=== PATIENT | female | born 1950 | race Caucasian/White ===

== ENCOUNTER 2017-11-01 22:17 | Observation (INO) ==
--- NOTE | 2017-11-01 23:16 | XR ---
EXAM DATE: 11/01/2017 11:06 PM EDT AGE/SEX: 67 years / Female INDICATIONS: Evaluate lung status. Patient fell today. CLINICAL DATA: This is the patient's initial encounter. Patient reports that signs and symptoms have been present for 1 day and indicates a pain score of 0/10. MEDICAL/SURGICAL HISTORY: . Unobtainable. . Unobtainable. COMPARISON: No prior exams available for comparison. FINDINGS: A single AP view of the chest demonstrates the lungs to be symmetrically aerated without evidence of mass, infiltrate or effusion. The cardiomediastinal contours are unremarkable. Osseous structures a re intact. CONCLUSION: No acute cardiopulmonary process Electronically signed by: Krzysztof Oro MD 11/01/2017 11:15 PM EDT
--- NOTE | 2017-11-01 23:48 | ED ---
HPI General Chief complaint: Fall Stated complaint: fall/evac Time Seen by Provider: 11/01/17 22:26 Source: patient and EMS Mode of arrival: EMS Limitations: no limitations History of Present Illness HPI narrative: The patient is a 67 year old female who presents to the [facility] emergency department with a history of reportedly falling, hitting her head prior to arrival. The patient reportedly has a laceration to the head. Patient had a pressure bandage applied prior to arrival by ambulance services. The patient reports having chronic problems with her balance and frequent falls. She reports that she usually falls once a day. She denies having any loss of consciousness with this fall. She denies having any neck pain, new numbness or tingling to her arms or legs, or new weakness of her arms or legs. On review of systems otherwise, the patient denies having any known recent fevers, cough or congestion, chest pain, shortness of breath, abdominal pain, vomiting, diarrhea, urinary symptoms, or neurologic symptoms. The patient reports that she is unsure when her tetanus was last updated, however she has a history of multiple allergies and prefers that it not be administered today. Related Data Home Medications Medication Instructions Recorded Confirmed acetaminophen [Tylenol Extra 500 mg PO Q6H PRN 11/02/17 11/02/17 Strength] clonazepam [Klonopin] 2 mg PO QID 11/02/17 11/02/17 Allergies Allergy/AdvReac Type Severity Reaction Status Date / Time amoxicillin Allergy Swelling Verified 11/02/17 01:05 of Lip/Tongue/Throat aspirin Allergy Shortness Verified 11/02/17 01:05 of Breath bee pollen Allergy Rash Verified 11/02/17 01:05 calcium Allergy Shortness Verified 11/02/17 01:05 of Breath cheese Allergy Itching Verified 11/02/17 01:05 clonidine Allergy Chest Pain Verified 11/02/17 01:05 codeine Allergy Swelling Verified 11/02/17 01:05 of Lip/Tongue/Throat divalproex sodium Allergy Seizures Verified 11/02/17 01:05 [From Depakote] doxycycline Allergy Rash Verified 11/02/17 01:05 egg Allergy Hives Verified 11/02/17 01:05 Fish Containing Products Allergy Hives Verified 11/02/17 01:05 ibuprofen Allergy Swelling Verified 11/02/17 01:05 of Lip/Tongue/Throat Iodinated Contrast- Oral and Allergy Hives Verified 11/02/17 01:05 IV Dye latex Allergy Blister Verified 11/02/17 01:05 levalbuterol [From Xopenex] Allergy Anxiety Verified 11/02/17 01:05 morphine Allergy Shortness Verified 11/02/17 01:05 of Breath peanut Allergy Shortness Verified 11/02/17 01:05 of Breath Penicillins Allergy Swelling Verified 11/02/17 01:05 of Lip/Tongue/Throat propofol Allergy Hives Verified 11/02/17 01:05 propranolol Allergy Shortness Verified 11/02/17 01:05 of Breath soy Allergy Shortness Verified 11/02/17 01:05 of Breath tree nut Allergy Shortness Verified 11/02/17 01:05 of Breath triamcinolone [From Azmacort] Allergy Shortness Verified 11/02/17 01:05 of Breath zinc Allergy Itching Verified 11/02/17 01:05 diphenhydramine AdvReac Anxiety Verified 11/02/17 01:05 [From Benadryl] escitalopram [From Lexapro] AdvReac Irritabilit Verified 11/02/17 01:05 y/Anxiety hydroxyzine [From Vistaril] AdvReac Irritabilit Verified 11/02/17 01:05 y/Anxiety paroxetine [From Paxil] AdvReac Irritabilit Verified 11/02/17 01:05 y/Anxiety prednisone AdvReac Anxiety Verified 11/02/17 01:05 quetiapine [From Seroquel] AdvReac Anxiety Verified 11/02/17 01:05 zolpidem [From Ambien] AdvReac Restlessnes Verified 11/02/17 01:05 s Review of Systems ROS Unobtainable All other systems reviewed negative except as stated in HPI [facility] Medical History Medical History Anxiety (Acute) Diabetes (Acute) Migraine (Acute) Peptic ulcer disease (Acute) Surgical History Surgical History History of thyroid surgery (Acute) Hx of tonsillectomy (Acute) Social History Social History Substance History: No History of Abuse Second Hand Smoke Exposure: No Smoking Status: Never smoker How Often Do You Have a Drink Containing Alcohol: Never Recent Travel in [facility] within the Last 8 Weeks: No Recent Out of Country Travel within the Last 8 Weeks: No Immunization History Tetanus Immunization: Unsure Hx Influenza Vaccine This Season: No Exam [facility] Head: normocephalic and atraumatic (Patient had evidence of trauma with a pressure bandage in place. After the patient came back from CT the patient's bandage was removed and the patient was noted along the occiput, near the base of the skull to have an approximately 4 cm laceration with bleeding control.) Nose: no nasal discharge and no epistaxis Mouth: moist mucous membranes Throat: posterior oropharynx normal Eyes Sclera: normal sclerae Pupils: PERRL Neck Neck: no meningeal signs (No spinous process tenderness to palpation. No step- off or crepitus. No erythema or ecchymosis. No pain with active range of motion of her neck.), trachea midline and no JVD Chest Chest: normal inspection of the chest Resp Effort & Inspection: no use of accessory muscles Auscultation: clear to auscultation bilaterally Cardio Rate: regular rate Rhythm: regular rhythm Heart Sounds: no murmurs GI Inspection: non-distended Palpation: soft, no hepatosplenomegaly and nontender Back/Spine/Pelvis Back: no CVA tenderness Thoracic/Lumbar Spine: No thoracic spinal tenderness and No lumbar spinal tenderness Skin General: dry skin (warm) Trauma: abrasion (The patient is noted to have superficial laceration to the anterior [place] on the left, abrasion to bilateral knees, abrasion to the right posterior elbow.) Neuro General: alert, awake and oriented x3 Cranial Nerves: CN's II-XI intact bilaterally Speech: speech normal Motor: strength 5/5 throughout and no movement abnormalities noted Sensory Exam: no sensory deficits noted Extrem General: normal to inspection, no clubbing, no cyanosis and no edema Psych Mood: congruent mood Affect: normal affect Judgment: judgment good Course Reevaluation(s) Reevaluation #1: The patient was reevaluated and her pressure bandage was removed. The patient was noted to have a scalp laceration on the occipital scalp. The physician review assistant was consulted for wound cleansing and repair. Reevaluation #2: The patient was instructed regarding her laboratory results including the hypokalemia. The patient will be admitted to the hospital for supplementation of her potassium. Consultations Consultation #1: The patient's case including history, pertinent physical examination findings, and laboratory studies were discussed with Dr. Snyder. It was agreed that the patient would be admitted to the hospitalist service. Initial Documented Vital Signs Pulse Rate 87 11/01/17 22:22 Respiratory Rate 20 11/01/17 22:22 Blood Pressure 165/72 H 11/01/17 22:22 Pulse Oximetry 100 11/01/17 22:22 Last Documented Vital Signs Pulse Rate 77 11/02/17 06:48 Respiratory Rate 16 11/02/17 06:47 Blood Pressure 163/74 H 11/02/17 06:47 Pulse Oximetry 100 11/02/17 06:47 Medical Decision Making MDM Narrative Medical decision making narrative: During the course of the patient's emergency department visit, the patient's history, examination, and differential diagnosis were reviewed with the patient. The patient was placed on a pvc monitor with oximetry and frequent blood pressure monitoring. The patient had IV access obtained and blood work sent for analysis. CT scan of the head and neck has been ordered, chest x-ray has been ordered. The patient was initially provided normal saline IV fluids The patient's laboratory studies were remarkable for a white count of 11.7, hemoglobin 11.2, platelets 352 with 84.5 neutrophils PT PTT unremarkable, chemistry is remarkable for a troponin I of less than 0.02, CPK 428, TSH elevated at 4.86, glucose 117, potassium 2.8, GFR is 48, creatinine 1.13, MB percent 1.0, ammonia level is less than 10, urine drug screen is positive for benzodiazepines. Chest x-ray showed no acute abnormality. CT scan of the head and neck showed no acute abnormality. Regarding the patient's laceration, Gelacio, the physician review assistant was consulted regarding wound cleansing and repair. The patient will be admitted to the hospital for generalized weakness, hypokalemia, head injury. The patient's results were discussed with the patient, including the plan of care. I explained that further testing and/ or monitoring is indicated based on the patient's history, examination, and/ or laboratory findings. Therefore, I recommended admission for additional evaluation. The patient expressed understanding and was agreeable with this plan. The patient was admitted to the hospital in stable condition and sent to a bed under the care of the [facility] service. Differential Diagnosis Differential Diagnosis: Intracranial trauma, versus cervical spine trauma, versus encephalopathy, versus electrolyte derangements, versus dehydration Medical Records Medical records reviewed: Yes I reviewed the patient's medical records. Lab Data Lab results reviewed: Yes I reviewed the patient's lab results. Result diagrams: 11/01/17 23:40 11/01/17 23:40 Lab Results 11/01/17 11/01/17 11/01/17 Range/Units 23:40 23:40 23:40 WBC 11.7 H (4.0-11.0) th/mm3 RBC 3.91 L (4.00-5.30) mil/mm3 Hgb 11.2 L (11.6-15.3) gm/dL Hct 34.4 L (35.0-46.0) % MCV 88.1 (80.0-100.0) fL MCH 28.7 (27.0-34.0) pg MCHC 32.6 (32.0-36.0) % RDW 17.2 (11.6-17.2) % Plt Count 352 (150-450) th/mm3 MPV 7.3 (7.0-11.0) fL Neut % (Auto) 84.5 H (16.0-70.0) % Lymph % (Auto) 10.8 (9.0-44.0) % [place] % (Auto) 3.9 (0.0-8.0) % Eos % (Auto) 0.2 (0.0-4.0) % Baso % (Auto) 0.6 (0.0-2.0) % Neut # (Auto) 9.9 H (1.8-7.7) th/mm3 Lymph # (Auto) 1.3 (1.0-4.8) th/mm3 [place] # (Auto) 0.5 (0.0-0.9) th/mm3 Eos # (Auto) 0.0 (0.0-0.4) th/mm3 Baso # (Auto) 0.1 (0.0-0.2) th/mm3 WBC Differential . Differential Comment Auto diff final PT 10.4 (9.8-11.6) sec INR 1.0 Ratio APTT 21.9 L (24.3-30.1) sec Sodium 141 (136-145) meq/L Potassium 2.8 L* (3.5-5.1) meq/L Chloride 107 (98-107) meq/L Carbon Dioxide 22.9 (21.0-32.0) meq/L Anion Gap 11 (5-15) meq/L BUN 17 (7-18) mg/dL Creatinine 1.13 H (0.50-1.00) mg/dL Estimated GFR 48 L (>89) mL/min Random Glucose 117 H (74-106) mg/dL Calcium 8.7 (8.5-10.1) mg/dL Magnesium (1.5-2.5) mg/dL Total Bilirubin 0.4 (0.2-1.0) mg/dL AST 22 (15-37) U/L ALT 21 (10-53) U/L Alkaline Phosphatase 85 (45-117) U/L Ammonia (11-32) mcmol/L Total Creatine Kinase 428 H (26-192) U/L CK-MB (CK-2) 4.3 H (0.5-3.6) ng/mL CK-MB (CK-2) % 1.0 (0.0-4.0) % Troponin I Less than 0.02 L (0.02-0.05) ng/mL Total Protein 8.2 (6.4-8.2) g/dL Albumin 4.0 (3.4-5.0) g/dL Lipase 115 (73-393) U/L TSH 4.860 H (0.358-3.740) uIU/mL Urine Color (Yellw/Straw) Urine Clarity (Clear) Urine pH (5.0-8.5) Ur Specific Pinch (1.002-1.035) Urine Protein (Neg-Trace) mg/dL Urine Glucose (UA) (Negative) mg/dL Urine Ketones (Negative) mg/dL Urine Occult Blood (Negative) Urine Nitrate (Negative) Urine Bilirubin (Negative) Urine Urobilinogen (Less than 2) mg/dL Ur Leukocyte Esterase (Negative) Urine RBC (0-3) /hpf Urine WBC (0-5) /hpf Urine Bacteria (None) /hpf Granular Casts (None) /lpf Urine Mucus (Occasional) /lpf Micro UA Comment Urine Culture Comments Urine Opiates Screen (Neg) Ur Barbiturates Screen (Neg) Ur Amphetamines Screen (Neg) U Benzodiazepines Scrn (Neg) Urine Cocaine Screen (Neg) U Cannabinoids Screen (Neg) Serum Alcohol Less than 3 (0-5) mg/dL 11/01/17 11/01/17 11/02/17 Range/Units 23:40 23:40 00:00 WBC (4.0-11.0) th/mm3 RBC (4.00-5.30) mil/mm3 Hgb (11.6-15.3) gm/dL Hct (35.0-46.0) % MCV (80.0-100.0) fL MCH (27.0-34.0) pg MCHC (32.0-36.0) % RDW (11.6-17.2) % Plt Count (150-450) th/mm3 MPV (7.0-11.0) fL Neut % (Auto) (16.0-70.0) % Lymph % (Auto) (9.0-44.0) % [place] % (Auto) (0.0-8.0) % Eos % (Auto) (0.0-4.0) % Baso % (Auto) (0.0-2.0) % Neut # (Auto) (1.8-7.7) th/mm3 Lymph # (Auto) (1.0-4.8) th/mm3 [place] # (Auto) (0.0-0.9) th/mm3 Eos # (Auto) (0.0-0.4) th/mm3 Baso # (Auto) (0.0-0.2) th/mm3 WBC Differential Differential Comment PT (9.8-11.6) sec INR Ratio APTT (24.3-30.1) sec Sodium (136-145) meq/L Potassium (3.5-5.1) meq/L Chloride (98-107) meq/L Carbon Dioxide (21.0-32.0) meq/L Anion Gap (5-15) meq/L BUN (7-18) mg/dL Creatinine (0.50-1.00) mg/dL Estimated GFR (>89) mL/min Random Glucose (74-106) mg/dL Calcium (8.5-10.1) mg/dL Magnesium 2.2 (1.5-2.5) mg/dL Total Bilirubin (0.2-1.0) mg/dL AST (15-37) U/L ALT (10-53) U/L Alkaline Phosphatase (45-117) U/L Ammonia Less than 10 L (11-32) mcmol/L Total Creatine Kinase (26-192) U/L CK-MB (CK-2) (0.5-3.6) ng/mL CK-MB (CK-2) % (0.0-4.0) % Troponin I (0.02-0.05) ng/mL Total Protein (6.4-8.2) g/dL Albumin (3.4-5.0) g/dL Lipase (73-393) U/L TSH (0.358-3.740) uIU/mL Urine Color (Yellw/Straw) Urine Clarity (Clear) Urine pH (5.0-8.5) Ur Specific Pinch (1.002-1.035) Urine Protein (Neg-Trace) mg/dL Urine Glucose (UA) (Negative) mg/dL Urine Ketones (Negative) mg/dL Urine Occult Blood (Negative) Urine Nitrate (Negative) Urine Bilirubin (Negative) Urine Urobilinogen (Less than 2) mg/dL Ur Leukocyte Esterase (Negative) Urine RBC (0-3) /hpf Urine WBC (0-5) /hpf Urine Bacteria (None) /hpf Granular Casts (None) /lpf Urine Mucus (Occasional) /lpf Micro UA Comment Urine Culture Comments Urine Opiates Screen Neg (Neg) Ur Barbiturates Screen Neg (Neg) Ur Amphetamines Screen Neg (Neg) U Benzodiazepines Scrn Pos H (Neg) Urine Cocaine Screen Neg (Neg) U Cannabinoids Screen Neg (Neg) Serum Alcohol (0-5) mg/dL 11/02/17 Range/Units 00:00 WBC (4.0-11.0) th/mm3 RBC (4.00-5.30) mil/mm3 Hgb (11.6-15.3) gm/dL Hct (35.0-46.0) % MCV (80.0-100.0) fL MCH (27.0-34.0) pg MCHC (32.0-36.0) % RDW (11.6-17.2) % Plt Count (150-450) th/mm3 MPV (7.0-11.0) fL Neut % (Auto) (16.0-70.0) % Lymph % (Auto) (9.0-44.0) % [place] % (Auto) (0.0-8.0) % Eos % (Auto) (0.0-4.0) % Baso % (Auto) (0.0-2.0) % Neut # (Auto) (1.8-7.7) th/mm3 Lymph # (Auto) (1.0-4.8) th/mm3 [place] # (Auto) (0.0-0.9) th/mm3 Eos # (Auto) (0.0-0.4) th/mm3 Baso # (Auto) (0.0-0.2) th/mm3 WBC Differential Differential Comment PT (9.8-11.6) sec INR Ratio APTT (24.3-30.1) sec Sodium (136-145) meq/L Potassium (3.5-5.1) meq/L Chloride (98-107) meq/L Carbon Dioxide (21.0-32.0) meq/L Anion Gap (5-15) meq/L BUN (7-18) mg/dL Creatinine (0.50-1.00) mg/dL Estimated GFR (>89) mL/min Random Glucose (74-106) mg/dL Calcium (8.5-10.1) mg/dL Magnesium (1.5-2.5) mg/dL Total Bilirubin (0.2-1.0) mg/dL AST (15-37) U/L ALT (10-53) U/L Alkaline Phosphatase (45-117) U/L Ammonia (11-32) mcmol/L Total Creatine Kinase (26-192) U/L CK-MB (CK-2) (0.5-3.6) ng/mL CK-MB (CK-2) % (0.0-4.0) % Troponin I (0.02-0.05) ng/mL Total Protein (6.4-8.2) g/dL Albumin (3.4-5.0) g/dL Lipase (73-393) U/L TSH (0.358-3.740) uIU/mL Urine Color Yellow (Yellw/Straw) Urine Clarity Hazy H (Clear) Urine pH 5.0 (5.0-8.5) Ur Specific Pinch 1.034 (1.002-1.035) Urine Protein 100 H (Neg-Trace) mg/dL Urine Glucose (UA) Negative (Negative) mg/dL Urine Ketones Trace H (Negative) mg/dL Urine Occult Blood Small H (Negative) Urine Nitrate Negative (Negative) Urine Bilirubin Negative (Negative) Urine Urobilinogen 2.0 H (Less than 2) mg/dL Ur Leukocyte Esterase Negative (Negative) Urine RBC 1 (0-3) /hpf Urine WBC 4 (0-5) /hpf Urine Bacteria Rare H (None) /hpf Granular Casts 17 (None) /lpf Urine Mucus Many H (Occasional) /lpf Micro UA Comment Cath-culture ind Urine Culture Comments Cath-cult indicated Urine Opiates Screen (Neg) Ur Barbiturates Screen (Neg) Ur Amphetamines Screen (Neg) U Benzodiazepines Scrn (Neg) Urine Cocaine Screen (Neg) U Cannabinoids Screen (Neg) Serum Alcohol (0-5) mg/dL Imaging Data Radiologist's impression: Chest X-Ray 11/01/17 22:49 CONCLUSION: No acute cardiopulmonary process Head CT 11/01/17 22:49 CONCLUSION: 1. 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 Moderately severe periventricular and deep white matter tracts small vessel ischemic demyelination. 2. Cephalhematoma or scalp laceration laterally and posteriorly in the left high parietal convexity. 3. However, no acute intracranial process, trauma or fracture Cervical Spine CT 11/01/17 22:50 CONCLUSION: 1. . Mild degenerative disc disease basically isolated to C5-6 and C6-7 with some loss of disc height and associated marginal spurs. 2. Otherwise negative. No acute fracture or listhesis. Spinal canal and neural foramina appear to be adequate throughout. Shoulder X-Ray 11/02/17 02:06 CONCLUSION: No fracture or significant degenerative changes. Wrist X-Ray 11/02/17 02:06 CONCLUSION: Horizontal impaction type fracture through the distal radial metadiaphysis with no obvious intra-articular extension Discharge Plan Discharge Disposition Patient Disposition: 30 Still Patient Discharge Details Diagnosis: Cardiac arrhythmia, Chest pain, rule out acute myocardial infarction Physicians Team ED Provider: Bushra Mcqueen ED Midlevel Provider: Gelacio [place] Primary Care Provider: UNKNOWN, Attending Provider: Jarrell Cruz ED Status: Admitted Observation Patient
[2017-11-01 23:58] LABS: Baso # (Auto) 0.1 th/mm3 (0.0-0.2); Baso % (Auto) 0.6 % (0.0-2.0); Eos % (Auto) 0.2 % (0.0-4.0); Hematocrit 34.4 % (35.0-46.0); Hemoglobin 11.2 gm/dL (11.6-15.3); Lymph # (Auto) 1.3 th/mm3 (1.0-4.8); Lymph % (Auto) 10.8 % (9.0-44.0); Mean Corpuscular HGB Conc 32.6 % (32.0-36.0); Mean Corpuscular Hemoglobin 28.7 pg (27.0-34.0); Mean Corpuscular Volume 88.1 fL (80.0-100.0); Mean Platelet Volume 7.3 fL (7.0-11.0); Mono # (Auto) 0.5 th/mm3 (0.0-0.9); Mono % (Auto) 3.9 % (0.0-8.0); Neut # (Auto) 9.9 th/mm3 (1.8-7.7); Neut % (Auto) 84.5 % (16.0-70.0); Platelet Count 352 th/mm3 (150-450); Red Blood Count 3.91 mil/mm3 (4.00-5.30); Red Cell Distribution Width 17.2 % (11.6-17.2); White Blood Count 11.7 th/mm3 (4.0-11.0)
[2017-11-02] MEDS: Sod Chloride 0.9% Inj 1,000 ML IV.CONT SCH ×2 (00:01→09:12)
[2017-11-02 00:11] LABS: Activated Partial Thrombo Time 21.9 sec (24.3-30.1); Prothrombin Time 10.4 sec (9.8-11.6)
[2017-11-02 00:20] LABS: Bacteria,Urine Rare /hpf; Bilirubin,Urine Negative (Negative); Clarity,Urine Hazy (Clear); Color,Urine Yellow (Yellw/Straw); Glucose,Urine (UA) Negative (Negative); Leukocyte Esterase,Urine Negative (Negative); Mucus,Urine Many /lpf (Occasional); Nitrite,Urine Negative (Negative); Specific Gravity,Urine 1.034 (1.002-1.035)
[2017-11-02 00:23] LABS: Amphetamine Screen,Urine Neg (Neg); Barbiturate Screen,Urine Neg (Neg); Cannabinoid Screen,Urine Neg (Neg); Cocaine Screen,Urine Neg (Neg); Opiate Screen,Urine Neg (Neg)
--- NOTE | 2017-11-02 00:24 | CT ---
EXAM DATE: 11/01/2017 11:36 PM EDT AGE/SEX: 67 years / Female INDICATIONS: Trauma; fall. CLINICAL DATA: This is the patient's initial encounter. Patient reports that signs and symptoms have been present for 1 day and indicates a pain score of 5/10. MEDICAL/SURGICAL HISTORY: Diabetes. None. RADIATION DOSE: 56.35 CTDI (mGy) COMPARISON: No prior exams available for comparison. TECHNIQUE: CT of the head without contrast. Using automated exposure control and adjustment of the mA and/or kV according to patient size, radiation dose was kept as low as reasonably achievable to ob tain optimal diagnostic quality images. DICOM format image data is available electronically for revi ew and comparison. FINDINGS: Cerebrum: The ventricles are normal for age. Old lacunar type infarct in the inferior aspect of the right basal ganglia. Periventricular and deep white matter tract areas of diminished attenuation are characteristic of moderately severe small vessel ischemic demyelination. No evidence of midline shif t, mass lesion, hemorrhage or acute infarction. No extraaxial fluid collections are seen. Posterior Fossa: The cerebellum and brainstem are intact. The 4th ventricle is midline. The cerebe llopontine angle is unremarkable. Extracranial: The visualized portion of the orbits is intact. Skull: The calvaria is intact. No evidence of skull fracture. There appear to be small cephalhemato mas or lacerations over the left lateral and posterior high convexly parietal bones. CONCLUSION: 1. Chronic changes with an old lacunar type infarct in the inferior aspect of the right basal gangli a. Moderately severe periventricular and deep white matter tracts small vessel ischemic demyelination . 2. Cephalhematoma or scalp laceration laterally and posteriorly in the left high parietal convexity. 3. However, no acute intracranial process, trauma or fracture Electronically signed by: Krzysztof Oro MD 11/02/2017 12:22 AM EDT
--- NOTE | 2017-11-02 00:25 | CT ---
EXAM DATE: 11/01/2017 11:39 PM EDT AGE/SEX: 67 years / Female INDICATIONS: Trauma; fall. CLINICAL DATA: This is the patient's initial encounter. Patient reports that signs and symptoms have been present for 1 day and indicates a pain score of 5/10. MEDICAL/SURGICAL HISTORY: Diabetes. None. RADIATION DOSE: 21.89 CTDI (mGy) COMPARISON: No prior exams available for comparison. TECHNIQUE: Contiguous axial images were obtained using helical multirow detector technique. The vol umetric data was post-processed with multiplanar reconstruction in oblique axial, sagittal, and coron al planes. Using automated exposure control and adjustment of the mA and/or kV according to patient s ize, radiation dose was kept as low as reasonably achievable to obtain optimal diagnostic quality haven ges. DICOM format image data is available electronically for review and comparison. FINDINGS: Sagittal and coronal reconstruction show minimal degenerative disc disease at C5-6 and C6-7 with some loss of disc height and associated marginal spurs. Otherwise, the spinal canal is widely patent thro ughout with no central spinal stenosis. Vertebral body heights are maintained without fracture or lis thesis C2-3: The bony spinal canal is normal in size. No evidence of disc bulge or herniation. The neural foramina are bilaterally patent. C3-4: The bony spinal canal is normal in size. No evidence of disc bulge or herniation. The neural foramina are bilaterally patent. C4-5: The bony spinal canal is normal in size. No evidence of disc bulge or herniation. The neural foramina are bilaterally patent. C5-6: The bony spinal canal is normal in size. No evidence of disc bulge or herniation. The neural foramina are bilaterally patent. C6-7: The bony spinal canal is normal in size. No evidence of disc bulge or herniation. The neural foramina are bilaterally patent. C7-T1: The bony spinal canal is normal in size. No evidence of disc bulge or herniation. The neura l foramina are bilaterally patent. CONCLUSION: 1. . Mild degenerative disc disease basically isolated to C5-6 and C6-7 with some loss of disc heigh t and associated marginal spurs. 2. Otherwise negative. No acute fracture or listhesis. Spinal canal and neural foramina appear to be adequate throughout. Electronically signed by: Krzysztof Oro MD 11/02/2017 12:24 AM EDT
[2017-11-02 00:32] LABS: Alanine Aminotransferase 21 U/L (10-53); Alkaline Phosphatase 85 U/L (45-117); Anion Gap 11 meq/L (5-15); Aspartate Aminotransferase 22 U/L (15-37); Blood Urea Nitrogen 17 mg/dL (7-18); Calcium 8.7 mg/dL (8.5-10.1); Carbon Dioxide 22.9 meq/L (21.0-32.0); Chloride 107 meq/L (98-107); Creatine Kinase 428 U/L (26-192); Glomerular Filtration Rate 48 mL/min (>89); Glucose,Random 117 mg/dL (74-106); Lipase 115 U/L (73-393); Sodium 141 meq/L (136-145); Total Protein 8.2 g/dL (6.4-8.2)
[2017-11-02 00:34] LABS: Potassium 2.8 meq/L (3.5-5.1)
--- NOTE | 2017-11-02 00:47 | ED ---
HPI General Chief Complaint: Fall Stated Complaint: fall/evac Time Seen by Provider: 11/01/17 22:26 Source: patient and EMS Mode of arrival: EMS Related Data Home Medications Medication Instructions Recorded Confirmed acetaminophen [Tylenol Extra 500 mg PO Q6H PRN 11/02/17 11/02/17 Strength] clonazepam [Klonopin] 2 mg PO QID 11/02/17 11/02/17 Allergies Allergy/AdvReac Type Severity Reaction Status Date / Time amoxicillin Allergy Swelling Verified 11/02/17 01:05 of Lip/Tongue/Throat aspirin Allergy Shortness Verified 11/02/17 01:05 of Breath bee pollen Allergy Rash Verified 11/02/17 01:05 calcium Allergy Shortness Verified 11/02/17 01:05 of Breath cheese Allergy Itching Verified 11/02/17 01:05 clonidine Allergy Chest Pain Verified 11/02/17 01:05 codeine Allergy Swelling Verified 11/02/17 01:05 of Lip/Tongue/Throat divalproex sodium Allergy Seizures Verified 11/02/17 01:05 [From Depakote] doxycycline Allergy Rash Verified 11/02/17 01:05 egg Allergy Hives Verified 11/02/17 01:05 Fish Containing Products Allergy Hives Verified 11/02/17 01:05 ibuprofen Allergy Swelling Verified 11/02/17 01:05 of Lip/Tongue/Throat Iodinated Contrast- Oral and Allergy Hives Verified 11/02/17 01:05 IV Dye latex Allergy Blister Verified 11/02/17 01:05 levalbuterol [From Xopenex] Allergy Anxiety Verified 11/02/17 01:05 morphine Allergy Shortness Verified 11/02/17 01:05 of Breath peanut Allergy Shortness Verified 11/02/17 01:05 of Breath Penicillins Allergy Swelling Verified 11/02/17 01:05 of Lip/Tongue/Throat propofol Allergy Hives Verified 11/02/17 01:05 propranolol Allergy Shortness Verified 11/02/17 01:05 of Breath soy Allergy Shortness Verified 11/02/17 01:05 of Breath tree nut Allergy Shortness Verified 11/02/17 01:05 of Breath triamcinolone [From Azmacort] Allergy Shortness Verified 11/02/17 01:05 of Breath zinc Allergy Itching Verified 11/02/17 01:05 diphenhydramine AdvReac Anxiety Verified 11/02/17 01:05 [From Benadryl] escitalopram [From Lexapro] AdvReac Irritabilit Verified 11/02/17 01:05 y/Anxiety hydroxyzine [From Vistaril] AdvReac Irritabilit Verified 11/02/17 01:05 y/Anxiety paroxetine [From Paxil] AdvReac Irritabilit Verified 11/02/17 01:05 y/Anxiety prednisone AdvReac Anxiety Verified 11/02/17 01:05 quetiapine [From Seroquel] AdvReac Anxiety Verified 11/02/17 01:05 zolpidem [From Ambien] AdvReac Restlessnes Verified 11/02/17 01:05 s [facility] Medical History Medical History Anxiety (Acute) Diabetes (Acute) Migraine (Acute) Peptic ulcer disease (Acute) Surgical History Surgical History History of thyroid surgery (Acute) Hx of tonsillectomy (Acute) Social History Social History Substance History: No History of Abuse Second Hand Smoke Exposure: No Smoking Status: Never smoker How Often Do You Have a Drink Containing Alcohol: Never Recent Travel in [facility] within the Last 8 Weeks: No Recent Out of Country Travel within the Last 8 Weeks: No Immunization History Tetanus Immunization: Unsure Hx Influenza Vaccine This Season: No Procedures Laceration Laceration 1: Site: scalp Size (cm): 5 Description: linear Depth: simple, single layer Pre-repair:: wound explored, irrigated extensively and deep structures intact Skin layer closed with: other ([place]) Number of sutures:: 6 Course Initial Documented Vital Signs Pulse Rate 87 11/01/17 22:22 Respiratory Rate 20 11/01/17 22:22 Blood Pressure 165/72 H 11/01/17 22:22 Pulse Oximetry 100 11/01/17 22:22 Last Documented Vital Signs Temperature 97.8 F 11/03/17 08:00 Pulse Rate 91 H 11/03/17 08:00 Respiratory Rate 16 11/03/17 08:00 Blood Pressure 141/70 H 11/03/17 08:00 Pulse Oximetry 100 11/03/17 08:00 Medical Decision Making Lab Data Result diagrams: 11/02/17 09:54 11/02/17 09:54 Lab Results 11/01/17 11/01/17 11/01/17 Range/Units 23:40 23:40 23:40 WBC 11.7 H (4.0-11.0) th/mm3 RBC 3.91 L (4.00-5.30) mil/mm3 Hgb 11.2 L (11.6-15.3) gm/dL Hct 34.4 L (35.0-46.0) % MCV 88.1 (80.0-100.0) fL MCH 28.7 (27.0-34.0) pg MCHC 32.6 (32.0-36.0) % RDW 17.2 (11.6-17.2) % Plt Count 352 (150-450) th/mm3 MPV 7.3 (7.0-11.0) fL Neut % (Auto) 84.5 H (16.0-70.0) % Lymph % (Auto) 10.8 (9.0-44.0) % [place] % (Auto) 3.9 (0.0-8.0) % Eos % (Auto) 0.2 (0.0-4.0) % Baso % (Auto) 0.6 (0.0-2.0) % Neut # (Auto) 9.9 H (1.8-7.7) th/mm3 Lymph # (Auto) 1.3 (1.0-4.8) th/mm3 [place] # (Auto) 0.5 (0.0-0.9) th/mm3 Eos # (Auto) 0.0 (0.0-0.4) th/mm3 Baso # (Auto) 0.1 (0.0-0.2) th/mm3 WBC Differential . Differential Comment Auto diff final PT 10.4 (9.8-11.6) sec INR 1.0 Ratio APTT 21.9 L (24.3-30.1) sec Sodium 141 (136-145) meq/L Potassium 2.8 L* (3.5-5.1) meq/L Chloride 107 (98-107) meq/L Carbon Dioxide 22.9 (21.0-32.0) meq/L Anion Gap 11 (5-15) meq/L BUN 17 (7-18) mg/dL Creatinine 1.13 H (0.50-1.00) mg/dL Estimated GFR 48 L (>89) mL/min POC Glucose (68-110) mg/dl Random Glucose 117 H (74-106) mg/dL Calcium 8.7 (8.5-10.1) mg/dL Magnesium (1.5-2.5) mg/dL Total Bilirubin 0.4 (0.2-1.0) mg/dL AST 22 (15-37) U/L ALT 21 (10-53) U/L Alkaline Phosphatase 85 (45-117) U/L Ammonia (11-32) mcmol/L Total Creatine Kinase 428 H (26-192) U/L CK-MB (CK-2) 4.3 H (0.5-3.6) ng/mL CK-MB (CK-2) % 1.0 (0.0-4.0) % Troponin I Less than 0.02 L (0.02-0.05) ng/mL Total Protein 8.2 (6.4-8.2) g/dL Albumin 4.0 (3.4-5.0) g/dL Lipase 115 (73-393) U/L TSH 4.860 H (0.358-3.740) uIU/mL Urine Color (Yellw/Straw) Urine Clarity (Clear) Urine pH (5.0-8.5) Ur Specific [place] (1.002-1.035) Urine Protein (Neg-Trace) mg/dL Urine Glucose (UA) (Negative) mg/dL Urine Ketones (Negative) mg/dL Urine Occult Blood (Negative) Urine Nitrate (Negative) Urine Bilirubin (Negative) Urine Urobilinogen (Less than 2) mg/dL Ur Leukocyte Esterase (Negative) Urine RBC (0-3) /hpf Urine WBC (0-5) /hpf Urine Bacteria (None) /hpf Granular Casts (None) /lpf Urine Mucus (Occasional) /lpf Micro UA Comment Urine Culture Comments Urine Opiates Screen (Neg) Ur Barbiturates Screen (Neg) Ur Amphetamines Screen (Neg) U Benzodiazepines Scrn (Neg) Urine Cocaine Screen (Neg) U Cannabinoids Screen (Neg) Serum Alcohol Less than 3 (0-5) mg/dL 11/01/17 11/01/17 11/02/17 Range/Units 23:40 23:40 00:00 WBC (4.0-11.0) th/mm3 RBC (4.00-5.30) mil/mm3 Hgb (11.6-15.3) gm/dL Hct (35.0-46.0) % MCV (80.0-100.0) fL MCH (27.0-34.0) pg MCHC (32.0-36.0) % RDW (11.6-17.2) % Plt Count (150-450) th/mm3 MPV (7.0-11.0) fL Neut % (Auto) (16.0-70.0) % Lymph % (Auto) (9.0-44.0) % [place] % (Auto) (0.0-8.0) % Eos % (Auto) (0.0-4.0) % Baso % (Auto) (0.0-2.0) % Neut # (Auto) (1.8-7.7) th/mm3 Lymph # (Auto) (1.0-4.8) th/mm3 [place] # (Auto) (0.0-0.9) th/mm3 Eos # (Auto) (0.0-0.4) th/mm3 Baso # (Auto) (0.0-0.2) th/mm3 WBC Differential Differential Comment PT (9.8-11.6) sec INR Ratio APTT (24.3-30.1) sec Sodium (136-145) meq/L Potassium (3.5-5.1) meq/L Chloride (98-107) meq/L Carbon Dioxide (21.0-32.0) meq/L Anion Gap (5-15) meq/L BUN (7-18) mg/dL Creatinine (0.50-1.00) mg/dL Estimated GFR (>89) mL/min POC Glucose (68-110) mg/dl Random Glucose (74-106) mg/dL Calcium (8.5-10.1) mg/dL Magnesium 2.2 (1.5-2.5) mg/dL Total Bilirubin (0.2-1.0) mg/dL AST (15-37) U/L ALT (10-53) U/L Alkaline Phosphatase (45-117) U/L Ammonia Less than 10 L (11-32) mcmol/L Total Creatine Kinase (26-192) U/L CK-MB (CK-2) (0.5-3.6) ng/mL CK-MB (CK-2) % (0.0-4.0) % Troponin I (0.02-0.05) ng/mL Total Protein (6.4-8.2) g/dL Albumin (3.4-5.0) g/dL Lipase (73-393) U/L TSH (0.358-3.740) uIU/mL Urine Color (Yellw/Straw) Urine Clarity (Clear) Urine pH (5.0-8.5) Ur Specific [place] (1.002-1.035) Urine Protein (Neg-Trace) mg/dL Urine Glucose (UA) (Negative) mg/dL Urine Ketones (Negative) mg/dL Urine Occult Blood (Negative) Urine Nitrate (Negative) Urine Bilirubin (Negative) Urine Urobilinogen (Less than 2) mg/dL Ur Leukocyte Esterase (Negative) Urine RBC (0-3) /hpf Urine WBC (0-5) /hpf Urine Bacteria (None) /hpf Granular Casts (None) /lpf Urine Mucus (Occasional) /lpf Micro UA Comment Urine Culture Comments Urine Opiates Screen Neg (Neg) Ur Barbiturates Screen Neg (Neg) Ur Amphetamines Screen Neg (Neg) U Benzodiazepines Scrn Pos H (Neg) Urine Cocaine Screen Neg (Neg) U Cannabinoids Screen Neg (Neg) Serum Alcohol (0-5) mg/dL 11/02/17 11/02/17 11/02/17 Range/Units 00:00 09:54 09:54 WBC 6.7 (4.0-11.0) th/mm3 RBC 3.68 L (4.00-5.30) mil/mm3 Hgb 10.7 L (11.6-15.3) gm/dL Hct 32.5 L (35.0-46.0) % MCV 88.1 (80.0-100.0) fL MCH 29.0 (27.0-34.0) pg MCHC 32.9 (32.0-36.0) % RDW 17.0 (11.6-17.2) % Plt Count 353 (150-450) th/mm3 MPV 7.5 (7.0-11.0) fL Neut % (Auto) 74.8 H (16.0-70.0) % Lymph % (Auto) 18.9 (9.0-44.0) % [place] % (Auto) 5.5 (0.0-8.0) % Eos % (Auto) 0.2 (0.0-4.0) % Baso % (Auto) 0.6 (0.0-2.0) % Neut # (Auto) 5.0 (1.8-7.7) th/mm3 Lymph # (Auto) 1.3 (1.0-4.8) th/mm3 [place] # (Auto) 0.4 (0.0-0.9) th/mm3 Eos # (Auto) 0.0 (0.0-0.4) th/mm3 Baso # (Auto) 0.0 (0.0-0.2) th/mm3 WBC Differential . Differential Comment Auto diff final PT (9.8-11.6) sec INR Ratio APTT (24.3-30.1) sec Sodium 140 (136-145) meq/L Potassium 3.2 L (3.5-5.1) meq/L Chloride 107 (98-107) meq/L Carbon Dioxide 22.9 (21.0-32.0) meq/L Anion Gap 10 (5-15) meq/L BUN 14 (7-18) mg/dL Creatinine 1.06 H (0.50-1.00) mg/dL Estimated GFR 52 L (>89) mL/min POC Glucose (68-110) mg/dl Random Glucose 130 H (74-106) mg/dL Calcium 8.8 (8.5-10.1) mg/dL Magnesium (1.5-2.5) mg/dL Total Bilirubin (0.2-1.0) mg/dL AST (15-37) U/L ALT (10-53) U/L Alkaline Phosphatase (45-117) U/L Ammonia (11-32) mcmol/L Total Creatine Kinase (26-192) U/L CK-MB (CK-2) (0.5-3.6) ng/mL CK-MB (CK-2) % (0.0-4.0) % Troponin I (0.02-0.05) ng/mL Total Protein (6.4-8.2) g/dL Albumin (3.4-5.0) g/dL Lipase (73-393) U/L TSH (0.358-3.740) uIU/mL Urine Color Yellow (Yellw/Straw) Urine Clarity Hazy H (Clear) Urine pH 5.0 (5.0-8.5) Ur Specific [place] 1.034 (1.002-1.035) Urine Protein 100 H (Neg-Trace) mg/dL Urine Glucose (UA) Negative (Negative) mg/dL Urine Ketones Trace H (Negative) mg/dL Urine Occult Blood Small H (Negative) Urine Nitrate Negative (Negative) Urine Bilirubin Negative (Negative) Urine Urobilinogen 2.0 H (Less than 2) mg/dL Ur Leukocyte Esterase Negative (Negative) Urine RBC 1 (0-3) /hpf Urine WBC 4 (0-5) /hpf Urine Bacteria Rare H (None) /hpf Granular Casts 17 (None) /lpf Urine Mucus Many H (Occasional) /lpf Micro UA Comment Cath-culture ind Urine Culture Comments Cath-cult indicated Urine Opiates Screen (Neg) Ur Barbiturates Screen (Neg) Ur Amphetamines Screen (Neg) U Benzodiazepines Scrn (Neg) Urine Cocaine Screen (Neg) U Cannabinoids Screen (Neg) Serum Alcohol (0-5) mg/dL 11/02/17 11/02/17 11/02/17 Range/Units 09:54 09:54 22:41 WBC (4.0-11.0) th/mm3 RBC (4.00-5.30) mil/mm3 Hgb (11.6-15.3) gm/dL Hct (35.0-46.0) % MCV (80.0-100.0) fL MCH (27.0-34.0) pg MCHC (32.0-36.0) % RDW (11.6-17.2) % Plt Count (150-450) th/mm3 MPV (7.0-11.0) fL Neut % (Auto) (16.0-70.0) % Lymph % (Auto) (9.0-44.0) % [place] % (Auto) (0.0-8.0) % Eos % (Auto) (0.0-4.0) % Baso % (Auto) (0.0-2.0) % Neut # (Auto) (1.8-7.7) th/mm3 Lymph # (Auto) (1.0-4.8) th/mm3 [place] # (Auto) (0.0-0.9) th/mm3 Eos # (Auto) (0.0-0.4) th/mm3 Baso # (Auto) (0.0-0.2) th/mm3 WBC Differential Differential Comment PT (9.8-11.6) sec INR Ratio APTT (24.3-30.1) sec Sodium (136-145) meq/L Potassium (3.5-5.1) meq/L Chloride (98-107) meq/L Carbon Dioxide (21.0-32.0) meq/L Anion Gap (5-15) meq/L BUN (7-18) mg/dL Creatinine (0.50-1.00) mg/dL Estimated GFR (>89) mL/min POC Glucose 103 (68-110) mg/dl Random Glucose (74-106) mg/dL Calcium (8.5-10.1) mg/dL Magnesium 2.1 (1.5-2.5) mg/dL Total Bilirubin (0.2-1.0) mg/dL AST (15-37) U/L ALT (10-53) U/L Alkaline Phosphatase (45-117) U/L Ammonia (11-32) mcmol/L Total Creatine Kinase 370 H (26-192) U/L CK-MB (CK-2) 3.1 (0.5-3.6) ng/mL CK-MB (CK-2) % 0.8 (0.0-4.0) % Troponin I (0.02-0.05) ng/mL Total Protein (6.4-8.2) g/dL Albumin (3.4-5.0) g/dL Lipase (73-393) U/L TSH (0.358-3.740) uIU/mL Urine Color (Yellw/Straw) Urine Clarity (Clear) Urine pH (5.0-8.5) Ur Specific [place] (1.002-1.035) Urine Protein (Neg-Trace) mg/dL Urine Glucose (UA) (Negative) mg/dL Urine Ketones (Negative) mg/dL Urine Occult Blood (Negative) Urine Nitrate (Negative) Urine Bilirubin (Negative) Urine Urobilinogen (Less than 2) mg/dL Ur Leukocyte Esterase (Negative) Urine RBC (0-3) /hpf Urine WBC (0-5) /hpf Urine Bacteria (None) /hpf Granular Casts (None) /lpf Urine Mucus (Occasional) /lpf Micro UA Comment Urine Culture Comments Urine Opiates Screen (Neg) Ur Barbiturates Screen (Neg) Ur Amphetamines Screen (Neg) U Benzodiazepines Scrn (Neg) Urine Cocaine Screen (Neg) U Cannabinoids Screen (Neg) Serum Alcohol (0-5) mg/dL 11/03/17 Range/Units 09:28 WBC (4.0-11.0) th/mm3 RBC (4.00-5.30) mil/mm3 Hgb (11.6-15.3) gm/dL Hct (35.0-46.0) % MCV (80.0-100.0) fL MCH (27.0-34.0) pg MCHC (32.0-36.0) % RDW (11.6-17.2) % Plt Count (150-450) th/mm3 MPV (7.0-11.0) fL Neut % (Auto) (16.0-70.0) % Lymph % (Auto) (9.0-44.0) % [place] % (Auto) (0.0-8.0) % Eos % (Auto) (0.0-4.0) % Baso % (Auto) (0.0-2.0) % Neut # (Auto) (1.8-7.7) th/mm3 Lymph # (Auto) (1.0-4.8) th/mm3 [place] # (Auto) (0.0-0.9) th/mm3 Eos # (Auto) (0.0-0.4) th/mm3 Baso # (Auto) (0.0-0.2) th/mm3 WBC Differential Differential Comment PT (9.8-11.6) sec INR Ratio APTT (24.3-30.1) sec Sodium (136-145) meq/L Potassium (3.5-5.1) meq/L Chloride (98-107) meq/L Carbon Dioxide (21.0-32.0) meq/L Anion Gap (5-15) meq/L BUN (7-18) mg/dL Creatinine (0.50-1.00) mg/dL Estimated GFR (>89) mL/min POC Glucose 95 (68-110) mg/dl Random Glucose (74-106) mg/dL Calcium (8.5-10.1) mg/dL Magnesium (1.5-2.5) mg/dL Total Bilirubin (0.2-1.0) mg/dL AST (15-37) U/L ALT (10-53) U/L Alkaline Phosphatase (45-117) U/L Ammonia (11-32) mcmol/L Total Creatine Kinase (26-192) U/L CK-MB (CK-2) (0.5-3.6) ng/mL CK-MB (CK-2) % (0.0-4.0) % Troponin I (0.02-0.05) ng/mL Total Protein (6.4-8.2) g/dL Albumin (3.4-5.0) g/dL Lipase (73-393) U/L TSH (0.358-3.740) uIU/mL Urine Color (Yellw/Straw) Urine Clarity (Clear) Urine pH (5.0-8.5) Ur Specific [place] (1.002-1.035) Urine Protein (Neg-Trace) mg/dL Urine Glucose (UA) (Negative) mg/dL Urine Ketones (Negative) mg/dL Urine Occult Blood (Negative) Urine Nitrate (Negative) Urine Bilirubin (Negative) Urine Urobilinogen (Less than 2) mg/dL Ur Leukocyte Esterase (Negative) Urine RBC (0-3) /hpf Urine WBC (0-5) /hpf Urine Bacteria (None) /hpf Granular Casts (None) /lpf Urine Mucus (Occasional) /lpf Micro UA Comment Urine Culture Comments Urine Opiates Screen (Neg) Ur Barbiturates Screen (Neg) Ur Amphetamines Screen (Neg) U Benzodiazepines Scrn (Neg) Urine Cocaine Screen (Neg) U Cannabinoids Screen (Neg) Serum Alcohol (0-5) mg/dL Imaging Data Radiologist's impression: Chest X-Ray 11/01/17 22:49 CONCLUSION: No acute cardiopulmonary process Head CT 11/01/17 22:49 CONCLUSION: 1. 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 Moderately severe periventricular and deep white matter tracts small vessel ischemic demyelination. 2. Cephalhematoma or scalp laceration laterally and posteriorly in the left high parietal convexity. 3. However, no acute intracranial process, trauma or fracture Cervical Spine CT 11/01/17 22:50 CONCLUSION: 1. . Mild degenerative disc disease basically isolated to C5-6 and C6-7 with some loss of disc height and associated marginal spurs. 2. Otherwise negative. No acute fracture or listhesis. Spinal canal and neural foramina appear to be adequate throughout. Shoulder X-Ray 11/02/17 02:06 CONCLUSION: No fracture or significant degenerative changes. Wrist X-Ray 11/02/17 02:06 CONCLUSION: Horizontal impaction type fracture through the distal radial metadiaphysis with no obvious intra-articular extension Discharge Plan Discharge Disposition Patient Disposition: 30 Still Patient Discharge Condition Condition: Stable Discharge Order Discharge Orders: Discharge Order (Routine); Ordered 11/03/17 Ordered By: Jarrell Cruz Orthopedic Clear for Discharge (Routine); Ordered 11/03/17 Ordered By: Rashad Askew Discharge Details Diagnosis: Cardiac arrhythmia, Chest pain, rule out acute myocardial infarction Physicians Team ED Provider: Bushra Mcqueen ED Midlevel Provider: Gelacio [place] Primary Care Provider: UNKNOWN, Attending Provider: Jarrell Cruz Other Providers: Demarcus Hadley Status ED Status: Left Department Discharge Information Discharge Date/Time: 11/02/17 10:36
[2017-11-02 00:48] LABS: Creatine Kinase MB 4.3 ng/mL (0.5-3.6)
[2017-11-02] MEDS ORDERED: Potassium Chlor 20 mEq Premix 20 MEQ/100 ML PIGGYBACK IV.SIG ONE ×2 (01:43→13:15)
--- NOTE | 2017-11-02 03:24 | P.HPIM ---
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 She states she falls every day because she takes Klonopin 4 times a day and a cane and walker just gets in her way. She suffered a head laceration that was stapled in the ED. Upon arrival patient was also found to have low potassium and patient states she can only drink milk and clementines. She denies any chest pain, sob, fevers or chills. She states she has a neurotransmitter that controls her body and it can combust at anytime. She states a dr in [place] prescribes her the Klonopin (verified by Fransisca). 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 - Medical History Medical History: Medical History (Last Reviewed 11/01/17 @ 23:44 by Bushra Mcqueen MD) Diabetes Anxiety Migraine Peptic ulcer disease - Surgical History Surgical History: Surgical History (Last Reviewed 11/01/17 @ 23:44 by Bushra Mcqueen MD) History of thyroid surgery Hx of tonsillectomy - Tobacco History Second Hand Smoke Exposure: No Smoking Status: Never smoker - Alcohol History How Often Do You Have a Drink Containing Alcohol: Never - Substance Use History Substance History: No History of Abuse - Travel History Recent Travel in the [place] Within the Last 8 Weeks: No Recent Travel Out of the Country Within the Last 8 Weeks: No - Immunization History Tetanus Immunization: Unsure Hx Influenza Vaccine This Season: No Medications and Allergies Active Medications: Active Medications Sodium Chloride (Ns Inj) 1,000 mls @ 125 mls/hr IV.CONT .Q8H JENNIFER Last Admin: 11/02/17 00:01 Dose: 125 mls/hr Potassium Chloride/Sodium Chloride (Ns + Kcl 20 Meq Inj) 1,000 mls @ 100 mls/ hr IV.CONT .Q10H JENNIFER Potassium Chloride (Kcl 20 Meq Premix Inj) 20 meq in 100 mls @ 50 mls/hr IV.SIG ONCE ONE Stop: 11/02/17 03:42 Last Admin: 11/02/17 02:07 Dose: 50 mls/hr Sodium Chloride (Ns Flush) 2 ml IV.FLUSH PRN PRN PRN Reason: FLUSH AFTER USING IV ACCESS Allergies Allergy/AdvReac Type Severity Reaction Status Date / Time amoxicillin Allergy Swelling Verified 11/02/17 01:05 of Lip/Tongue/Throat aspirin Allergy Shortness Verified 11/02/17 01:05 of Breath bee pollen Allergy Rash Verified 11/02/17 01:05 calcium Allergy Shortness Verified 11/02/17 01:05 of Breath cheese Allergy Itching Verified 11/02/17 01:05 clonidine Allergy Chest Pain Verified 11/02/17 01:05 codeine Allergy Swelling Verified 11/02/17 01:05 of Lip/Tongue/Throat divalproex sodium Allergy Seizures Verified 11/02/17 01:05 [From Depakote] doxycycline Allergy Rash Verified 11/02/17 01:05 egg Allergy Hives Verified 11/02/17 01:05 Fish Containing Products Allergy Hives Verified 11/02/17 01:05 ibuprofen Allergy Swelling Verified 11/02/17 01:05 of Lip/Tongue/Throat Iodinated Contrast- Oral and Allergy Hives Verified 11/02/17 01:05 IV Dye latex Allergy Blister Verified 11/02/17 01:05 levalbuterol [From Xopenex] Allergy Anxiety Verified 11/02/17 01:05 morphine Allergy Shortness Verified 11/02/17 01:05 of Breath peanut Allergy Shortness Verified 11/02/17 01:05 of Breath Penicillins Allergy Swelling Verified 11/02/17 01:05 of Lip/Tongue/Throat propofol Allergy Hives Verified 11/02/17 01:05 propranolol Allergy Shortness Verified 11/02/17 01:05 of Breath soy Allergy Shortness Verified 11/02/17 01:05 of Breath tree nut Allergy Shortness Verified 11/02/17 01:05 of Breath triamcinolone [From Azmacort] Allergy Shortness Verified 11/02/17 01:05 of Breath zinc Allergy Itching Verified 11/02/17 01:05 diphenhydramine AdvReac Anxiety Verified 11/02/17 01:05 [From Benadryl] escitalopram [From Lexapro] AdvReac Irritabilit Verified 11/02/17 01:05 y/Anxiety hydroxyzine [From Vistaril] AdvReac Irritabilit Verified 11/02/17 01:05 y/Anxiety paroxetine [From Paxil] AdvReac Irritabilit Verified 11/02/17 01:05 y/Anxiety prednisone AdvReac Anxiety Verified 11/02/17 01:05 quetiapine [From Seroquel] AdvReac Anxiety Verified 11/02/17 01:05 zolpidem [From Ambien] AdvReac Restlessnes Verified 11/02/17 01:05 s Home Medications Medication Instructions Recorded Confirmed Type acetaminophen [Tylenol Extra 500 mg PO Q6H PRN 11/02/17 11/02/17 History Strength] clonazepam [Klonopin] 2 mg PO QID 11/02/17 11/02/17 History Exam Vital signs: Vital Signs 11/01/17 22:22 11/01/17 23:50 11/02/17 01:35 Pulse Rate 87 88 92 H Respiratory Rate 20 18 Blood Pressure 165/72 H 167/74 H Pulse Oximetry 100 99 Intake & Output 11/01/17 11/01/17 11/02/17 06:59 18:59 06:59 Weight 83.915 kg Narrative: GENERAL: This is a well-nourished, well-developed patient, in no apparent distress. questionable underlying psych issues SKIN: Head laceration stapled, dry and covered with leslie CARDIOVASCULAR: Regular rate and rhythm without murmurs, gallops, or rubs. RESPIRATORY: Clear to auscultation. Breath sounds equal bilaterally. No wheezes , rales, or rhonchi. GASTROINTESTINAL: Abdomen soft, non-tender, nondistended. Normal active bowel sounds MUSCULOSKELETAL: Extremities without clubbing, cyanosis, or edema. NEURO: Alert & Oriented x4 to person, place, time, situation. Moves all ext x4 Results - Labs CBC & Chem 7: 11/01/17 23:40 11/01/17 23:40 Labs: Short CBC 11/01/17 Range/Units 23:40 WBC 11.7 H (4.0-11.0) th/mm3 Hgb 11.2 L (11.6-15.3) gm/dL Hct 34.4 L (35.0-46.0) % Plt Count 352 (150-450) th/mm3 BMP 11/01/17 23:40 Sodium 141 Potassium 2.8 L* Chloride 107 Carbon Dioxide 22.9 BUN 17 Creatinine 1.13 H Calcium 8.7 Cardiac Enzymes 11/01/17 Range/Units 23:40 Total Creatine Kinase 428 H (26-192) U/L CK-MB (CK-2) 4.3 H (0.5-3.6) ng/mL Troponin I Less than 0.02 L (0.02-0.05) ng/mL Liver Function 11/01/17 Range/Units 23:40 Total Bilirubin 0.4 (0.2-1.0) mg/dL AST 22 (15-37) U/L ALT 21 (10-53) U/L Alkaline Phosphatase 85 (45-117) U/L Albumin 4.0 (3.4-5.0) g/dL Urine 11/02/17 Range/Units 00:00 Urine Color Yellow (Yellw/Straw) Urine Clarity Hazy H (Clear) Urine pH 5.0 (5.0-8.5) Ur Specific [place] 1.034 (1.002-1.035) Urine Protein 100 H (Neg-Trace) mg/dL Urine Glucose (UA) Negative (Negative) mg/dL - Imaging Impressions Chest X-Ray 11/01/17 22:49 CONCLUSION: No acute cardiopulmonary process Head CT 11/01/17 22:49 CONCLUSION: 1. 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 Moderately severe periventricular and deep white matter tracts small vessel ischemic demyelination. 2. Cephalhematoma or scalp laceration laterally and posteriorly in the left high parietal convexity. 3. However, no acute intracranial process, trauma or fracture Cervical Spine CT 11/01/17 22:50 CONCLUSION: 1. . Mild degenerative disc disease basically isolated to C5-6 and C6-7 with some loss of disc height and associated marginal spurs. 2. Otherwise negative. No acute fracture or listhesis. Spinal canal and neural foramina appear to be adequate throughout. Caprini VTE Risk Assessment Caprini VTE Risk Assessment: No/Low Risk (score <= 1) Caprini Risk Assessment Model: Point Value = 1 Point Value = 2 Point Value = 3 Point Value = 5 Age 41-60 Minor surgery BMI > 25 kg/m2 Swollen legs Varicose veins or History of unexplained or recurrent spontaneous Oral contraceptives or hormone replacement Sepsis (< 1 month) Serious lung disease, including pneumonia (< 1 month) Abnormal pulmonary function Acute myocardial infarction Congestive heart failure (< 1 month) History of inflammatory bowel disease Medical patient at bed rest Age 61-74 Arthroscopic surgery Major open surgery (> 45 min) Laparoscopic surgery (> 45 min) Malignancy Confined to bed (> 72 hours) Immobilizing plaster cast Central venous access Age >= 75 History of VTE Family history of VTE Factor V Leiden Prothrombin [id number] Lupus anticoagulant Anticardiolipin antibodies Elevated serum homocysteine Heparin-induced thrombocytopenia Other congenital or acquired thrombophilia Stroke (< 1 month) Elective arthroplasty Hip, pelvis, or leg fracture Acute spinal cord injury (< 1 month) Prophylaxis Regimen: Total Risk Factor Score Risk Level Prophylaxis Regimen 0-1 Low Early ambulation 2 Moderate Order ONE of the following: *Sequential Compression Device (SCD) *Heparin 5000 units SQ BID 3-4 Higher Order ONE of the following medications: *Heparin 5000 units SQ TID *Enoxaparin/Lovenox 40 mg SQ daily (WT < 150 kg, CrCl > 30 mL/min) *Enoxaparin/Lovenox 30 mg SQ daily (WT < 150 kg, CrCl > 10-29 mL/min) *Enoxaparin/Lovenox 30 mg SQ BID (WT < 150 kg, CrCl > 30 mL/min) AND/OR *Sequential Compression Device (SCD) 5 or more Highest Order ONE of the following medications: *Heparin 5000 units SQ TID (Preferred with Epidurals) *Enoxaparin/Lovenox 40 mg SQ daily (WT < 150 kg, CrCl > 30 mL/min) *Enoxaparin/Lovenox 30 mg SQ daily (WT < 150 kg, CrCl > 10-29 mL/min) *Enoxaparin/Lovenox 30 mg SQ BID (WT < 150 kg, CrCl > 30 mL/min) AND *Sequential Compression Device (SCD) Assessment and Plan - Plan 67 y/o female with a history of anxiety, dm(diet controlled) and a 2d6 liver pathyway no metabolizer condition that causes multiple allergies was brought to the ED after falling and hitting her head. Hypokalemia, potassium 2.8, likely due to poor nutrition from multiple allergies -supplementation ordered, bmp in am, replace as needed Multiple falls, likely secondary to Klonopin use Head CT reviewed and is negative -PT eval and treat -Resume Klonopin TID as needed -Wrist x ray and shoulder x ray pending DVT prophylaxis: SCDs Discussed Condition With: Patient and RN
[2017-11-02] MEDS ORDERED: clonazePAM 1 MG Tablet PO PRN ×2 (03:36→09:49)
--- NOTE | 2017-11-02 03:42 | XR ---
EXAM DATE: 11/02/2017 2:57 AM EDT AGE/SEX: 67 years / Female INDICATIONS: Patient complains of right shoulder pain status post fall. CLINICAL DATA: This is the patient's initial encounter. Patient reports that signs and symptoms have been present for 1 day and indicates a pain score of 8/10. MEDICAL/SURGICAL HISTORY: None. None. COMPARISON: No prior exams available for comparison. FINDINGS: Bony structures are intact and in normal alignment. Joints are intact without dislocation or signifi cant arthropathy. Osseous density is normal. Soft tissues are unremarkable. No radiopaque foreign bodies seen. CONCLUSION: No fracture or significant degenerative changes. Electronically signed by: Krzysztof Oro MD 11/02/2017 3:41 AM EDT
--- NOTE | 2017-11-02 03:42 | XR ---
EXAM DATE: 11/02/2017 2:57 AM EDT AGE/SEX: 67 years / Female INDICATIONS: Patient complains of right wrist pain status post fall. CLINICAL DATA: This is the patient's initial encounter. Patient reports that signs and symptoms have been present for 1 day and indicates a pain score of 9/10. MEDICAL/SURGICAL HISTORY: None. None. COMPARISON: No prior exams available for comparison. FINDINGS: Multiple views of the wrist demonstrate a horizontal fracture through the distal radial metadiaphysis with no obvious intra-articular extension. Otherwise, the carpal bones are intact. Distal ulna is al so intact CONCLUSION: Horizontal impaction type fracture through the distal radial metadiaphysis with no obvious intra-elbert cular extension Electronically signed by: Krzysztof Oro MD 11/02/2017 3:40 AM EDT
--- NOTE | 2017-11-02 09:10 | P.PN ---
Subjective Interval history: F/U fall and low K. Complaining of right wrist pain. Agrees to have her Klonopin supply verified by pharmacy. Discussed with orthopedic surgery n.p.o. after midnight Physical Exam Vital signs: Vital Signs 11/01/17 22:22 11/01/17 23:50 11/02/17 01:35 Pulse Rate 87 88 92 H Respiratory Rate 20 18 Blood Pressure 165/72 H 167/74 H Pulse Oximetry 100 99 11/02/17 06:47 11/02/17 06:48 Pulse Rate 77 77 Respiratory Rate 16 Blood Pressure 163/74 H Pulse Oximetry 100 Intake & Output 11/01/17 11/02/17 11/02/17 18:59 06:59 18:59 Weight 83.915 kg Other: # Voids 1 Narrative: GENERAL: This is a well-nourished, well-developed patient, in no apparent distress. SKIN: Head laceration stapled, dry and covered with leslie CARDIOVASCULAR: Regular rate and rhythm without murmurs, gallops, or rubs. RESPIRATORY: Clear to auscultation. Breath sounds equal bilaterally. No wheezes , rales, or rhonchi. GASTROINTESTINAL: Abdomen soft, non-tender, nondistended. Normal active bowel sounds MUSCULOSKELETAL: Extremities without clubbing, cyanosis, or edema. Swollen tender wrist NEURO: Alert & Oriented x4 to person, place, time, situation. Moves all ext x4. No hallucinations Results - Labs CBC & Chem 7: 11/01/17 23:40 11/01/17 23:40 Laboratory Results - last 24 hr 11/01/17 11/01/17 11/01/17 23:40 23:40 23:40 WBC 11.7 H RBC 3.91 L Hgb 11.2 L Hct 34.4 L MCV 88.1 MCH 28.7 MCHC 32.6 RDW 17.2 Plt Count 352 MPV 7.3 Neut % (Auto) 84.5 H Lymph % (Auto) 10.8 [place] % (Auto) 3.9 Eos % (Auto) 0.2 Baso % (Auto) 0.6 Neut # (Auto) 9.9 H Lymph # (Auto) 1.3 [place] # (Auto) 0.5 Eos # (Auto) 0.0 Baso # (Auto) 0.1 WBC Differential . Differential Comment Auto diff final PT 10.4 INR 1.0 APTT 21.9 L Sodium 141 Potassium 2.8 L* Chloride 107 Carbon Dioxide 22.9 Anion Gap 11 BUN 17 Creatinine 1.13 H Estimated GFR 48 L Random Glucose 117 H Calcium 8.7 Magnesium Total Bilirubin 0.4 AST 22 ALT 21 Alkaline Phosphatase 85 Ammonia Total Creatine Kinase 428 H CK-MB (CK-2) 4.3 H CK-MB (CK-2) % 1.0 Troponin I Less than 0.02 L Total Protein 8.2 Albumin 4.0 Lipase 115 TSH 4.860 H Urine Color Urine Clarity Urine pH Ur Specific [place] Urine Protein Urine Glucose (UA) Urine Ketones Urine Occult Blood Urine Nitrate Urine Bilirubin Urine Urobilinogen Ur Leukocyte Esterase Urine RBC Urine WBC Urine Bacteria Granular Casts Urine Mucus Micro UA Comment Urine Culture Comments Urine Opiates Screen Ur Barbiturates Screen Ur Amphetamines Screen U Benzodiazepines Scrn Urine Cocaine Screen U Cannabinoids Screen Serum Alcohol Less than 3 11/01/17 11/01/17 11/02/17 23:40 23:40 00:00 WBC RBC Hgb Hct MCV MCH MCHC RDW Plt Count MPV Neut % (Auto) Lymph % (Auto) [place] % (Auto) Eos % (Auto) Baso % (Auto) Neut # (Auto) Lymph # (Auto) [place] # (Auto) Eos # (Auto) Baso # (Auto) WBC Differential Differential Comment PT INR APTT Sodium Potassium Chloride Carbon Dioxide Anion Gap BUN Creatinine Estimated GFR Random Glucose Calcium Magnesium 2.2 Total Bilirubin AST ALT Alkaline Phosphatase Ammonia Less than 10 L Total Creatine Kinase CK-MB (CK-2) CK-MB (CK-2) % Troponin I Total Protein Albumin Lipase TSH Urine Color Urine Clarity Urine pH Ur Specific [place] Urine Protein Urine Glucose (UA) Urine Ketones Urine Occult Blood Urine Nitrate Urine Bilirubin Urine Urobilinogen Ur Leukocyte Esterase Urine RBC Urine WBC Urine Bacteria Granular Casts Urine Mucus Micro UA Comment Urine Culture Comments Urine Opiates Screen Neg Ur Barbiturates Screen Neg Ur Amphetamines Screen Neg U Benzodiazepines Scrn Pos H Urine Cocaine Screen Neg U Cannabinoids Screen Neg Serum Alcohol 11/02/17 00:00 WBC RBC Hgb Hct MCV MCH MCHC RDW Plt Count MPV Neut % (Auto) Lymph % (Auto) [place] % (Auto) Eos % (Auto) Baso % (Auto) Neut # (Auto) Lymph # (Auto) [place] # (Auto) Eos # (Auto) Baso # (Auto) WBC Differential Differential Comment PT INR APTT Sodium Potassium Chloride Carbon Dioxide Anion Gap BUN Creatinine Estimated GFR Random Glucose Calcium Magnesium Total Bilirubin AST ALT Alkaline Phosphatase Ammonia Total Creatine Kinase CK-MB (CK-2) CK-MB (CK-2) % Troponin I Total Protein Albumin Lipase TSH Urine Color Yellow Urine Clarity Hazy H Urine pH 5.0 Ur Specific [place] 1.034 Urine Protein 100 H Urine Glucose (UA) Negative Urine Ketones Trace H Urine Occult Blood Small H Urine Nitrate Negative Urine Bilirubin Negative Urine Urobilinogen 2.0 H Ur Leukocyte Esterase Negative Urine RBC 1 Urine WBC 4 Urine Bacteria Rare H Granular Casts 17 Urine Mucus Many H Micro UA Comment Cath-culture ind Urine Culture Comments Cath-cult indicated Urine Opiates Screen Ur Barbiturates Screen Ur Amphetamines Screen U Benzodiazepines Scrn Urine Cocaine Screen U Cannabinoids Screen Serum Alcohol - Imaging Impressions Chest X-Ray 11/01/17 22:49 CONCLUSION: No acute cardiopulmonary process Head CT 11/01/17 22:49 CONCLUSION: 1. 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 Moderately severe periventricular and deep white matter tracts small vessel ischemic demyelination. 2. Cephalhematoma or scalp laceration laterally and posteriorly in the left high parietal convexity. 3. However, no acute intracranial process, trauma or fracture Cervical Spine CT 11/01/17 22:50 CONCLUSION: 1. . Mild degenerative disc disease basically isolated to C5-6 and C6-7 with some loss of disc height and associated marginal spurs. 2. Otherwise negative. No acute fracture or listhesis. Spinal canal and neural foramina appear to be adequate throughout. Shoulder X-Ray 11/02/17 02:06 CONCLUSION: No fracture or significant degenerative changes. Wrist X-Ray 11/02/17 02:06 CONCLUSION: Horizontal impaction type fracture through the distal radial metadiaphysis with no obvious intra-articular extension - Procedures stapled scalp laceration Assessment and Plan - Plan 67 y/o female with a history of anxiety, dm(diet controlled) and a 2d6 liver pathyway no metabolizer condition that causes multiple allergies was brought to the ED after falling and hitting her head. Hypokalemia, potassium 2.8, likely due to poor nutrition from multiple allergies -supplementation ordered, bmp Mg pending, replace as needed Multiple falls, likely secondary to Klonopin use Head CT reviewed and is negative -PT eval and treat, fall precautions -Resume Klonopin Q you ID as needed -Wrist x ray and shoulder x ray. Right distal radius fx. Pain mgt patient refusing narcotics wants to use her own Tylenol and ortho consult. Discussed with Dr. Hadley, n.p.o. after midnight DVT prophylaxis: SCDs
[2017-11-02] MEDS ORDERED: Dextrose 50% in Water 50 ML Vial IV.PUSH PRN (09:21)
[2017-11-02 10:45] LABS: Baso % (Auto) 0.6 % (0.0-2.0); Eos % (Auto) 0.2 % (0.0-4.0); Hematocrit 32.5 % (35.0-46.0); Hemoglobin 10.7 gm/dL (11.6-15.3); Lymph # (Auto) 1.3 th/mm3 (1.0-4.8); Lymph % (Auto) 18.9 % (9.0-44.0); Mean Corpuscular HGB Conc 32.9 % (32.0-36.0); Mean Corpuscular Volume 88.1 fL (80.0-100.0); Mean Platelet Volume 7.5 fL (7.0-11.0); Mono # (Auto) 0.4 th/mm3 (0.0-0.9); Mono % (Auto) 5.5 % (0.0-8.0); Neut % (Auto) 74.8 % (16.0-70.0); Platelet Count 353 th/mm3 (150-450); Red Blood Count 3.68 mil/mm3 (4.00-5.30); White Blood Count 6.7 th/mm3 (4.0-11.0)
[2017-11-02 11:06] LABS: Carbon Dioxide 22.9 meq/L (21.0-32.0); Potassium 3.2 meq/L (3.5-5.1)
[2017-11-02 11:07] LABS: Calcium 8.8 mg/dL (8.5-10.1)
[2017-11-02] MEDS ORDERED: Acetaminophen 500 MG Tablet PO PRN (12:03)
[2017-11-02] MEDS: KLONOPIN 0.5 MG PO SCH ×2 (16:20→21:21)
[2017-11-02] MEDS: CLONAZEPAM 2 MG PO SCH ×2 (16:20→21:21)
[2017-11-02 16:33] LABS: CKMB Percent 0.8 % (0.0-4.0); Creatine Kinase MB 3.1 ng/mL (0.5-3.6)
[2017-11-03] MEDS: CLONAZEPAM 2 MG PO SCH ×2 (03:21→09:30)
[2017-11-03] MEDS: KLONOPIN 0.5 MG PO SCH ×2 (03:21→09:30)
[2017-11-03 05:09] VITALS: TEMP 97.8; O2SAT 100
--- NOTE | 2017-11-03 08:18 | P.DCO ---
- Diagnosis (1) Radial fracture - Physical Therapy Order: Evaluate and treat, Improve ambulation, Strength and gait training - Home Health Nursing Order: Medical education, Wound care and dressing changes (dc scalp vu in 6 days) - Certification I have seen patient Jodi Sandhu on 11/03/17. My clinical findings support the need for the requested home health care services because: Deconditioned with increased weakness I certify that my clinical findings support that this patient is homebound because: Unsafe to leave home unassisted, Need for psychosocial assistance (1) Radial fracture Qualifiers: Radius location: distal
--- NOTE | 2017-11-03 08:27 | P.PN ---
Subjective Interval history: F/u fall and right radial fx. Doing ok does not want to decrease Klonopin dose states she has been on it for 15 years . Pt extensively counselled re SE from benzo including impairment and addiction. Also refusing surgery discussed with orthopedic service. Physical Exam Vital signs: Vital Signs 11/02/17 09:09 11/02/17 11:41 11/02/17 15:43 Temperature 98.2 F 98.1 F Pulse Rate 95 H 89 93 H Respiratory Rate 16 14 18 Blood Pressure 176/81 H 128/65 145/63 H Pulse Oximetry 100 100 100 11/02/17 19:26 11/02/17 23:38 11/02/17 23:43 Temperature 97.8 F 98.9 F Pulse Rate 89 83 Respiratory Rate 18 18 Blood Pressure 138/66 162/71 H Pulse Oximetry 100 100 99 11/03/17 04:00 Temperature 97.8 F Pulse Rate 81 Respiratory Rate 18 Blood Pressure 147/69 H Pulse Oximetry 100 Intake & Output 11/02/17 11/03/17 11/03/17 18:59 06:59 18:59 Intake Total 1999 2200 / 2200 Balance 1999 2200 / 2200 Weight 83.915 kg Intake: IV 1999 2200 / 2200 NS + KCl 20 mEq Inj 1,000 ML @ 1000 / 1000 1000 / 1000 100 mls/hr IV.CONT .Q10H JENNIFER Rx #:[id number] NS Inj 1,000 ML @ 125 mls/hr IV 1000 / 1000 1000 / 1000 .CONT .Q8H JENNIFER Rx#:[id number] KCl 20 mEq Premix Inj 20 meq In 100 / 100 100 ml @ 50 mls/hr IV.SIG ONCE ONE Rx#:[id number] Other: # Voids 1 Weight On Admission 83.915 kg Narrative: GENERAL: This is a well-nourished, well-developed patient, in no apparent distress. SKIN: Head laceration stapled, dry and covered with leslie CARDIOVASCULAR: Regular rate and rhythm without murmurs, gallops, or rubs. RESPIRATORY: Clear to auscultation. Breath sounds equal bilaterally. No wheezes , rales, or rhonchi. GASTROINTESTINAL: Abdomen soft, non-tender, nondistended. Normal active bowel sounds MUSCULOSKELETAL: Extremities without clubbing, cyanosis, or edema. Right upper extremity in this past and sling. Neurovascularly intact. NEURO: Alert & Oriented x4 to person, place, time, situation. Moves all ext x4. No hallucinations Results - Labs CBC & Chem 7: 11/02/17 09:54 11/02/17 09:54 Laboratory Results - last 24 hr 11/02/17 11/02/17 11/02/17 09:54 09:54 09:54 WBC 6.7 RBC 3.68 L Hgb 10.7 L Hct 32.5 L MCV 88.1 MCH 29.0 MCHC 32.9 RDW 17.0 Plt Count 353 MPV 7.5 Neut % (Auto) 74.8 H Lymph % (Auto) 18.9 [place] % (Auto) 5.5 Eos % (Auto) 0.2 Baso % (Auto) 0.6 Neut # (Auto) 5.0 Lymph # (Auto) 1.3 [place] # (Auto) 0.4 Eos # (Auto) 0.0 Baso # (Auto) 0.0 WBC Differential . Differential Comment Auto diff final Sodium 140 Potassium 3.2 L Chloride 107 Carbon Dioxide 22.9 Anion Gap 10 BUN 14 Creatinine 1.06 H Estimated GFR 52 L POC Glucose Random Glucose 130 H Calcium 8.8 Magnesium 2.1 Total Creatine Kinase CK-MB (CK-2) CK-MB (CK-2) % 11/02/17 11/02/17 09:54 22:41 WBC RBC Hgb Hct MCV MCH MCHC RDW Plt Count MPV Neut % (Auto) Lymph % (Auto) [place] % (Auto) Eos % (Auto) Baso % (Auto) Neut # (Auto) Lymph # (Auto) [place] # (Auto) Eos # (Auto) Baso # (Auto) WBC Differential Differential Comment Sodium Potassium Chloride Carbon Dioxide Anion Gap BUN Creatinine Estimated GFR POC Glucose 103 Random Glucose Calcium Magnesium Total Creatine Kinase 370 H CK-MB (CK-2) 3.1 CK-MB (CK-2) % 0.8 - Imaging ITS Impressions Chest X-Ray 11/01/17 22:49 CONCLUSION: No acute cardiopulmonary process Head CT 11/01/17 22:49 CONCLUSION: 1. 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 Moderately severe periventricular and deep white matter tracts small vessel ischemic demyelination. 2. Cephalhematoma or scalp laceration laterally and posteriorly in the left high parietal convexity. 3. However, no acute intracranial process, trauma or fracture Cervical Spine CT 11/01/17 22:50 CONCLUSION: 1. . Mild degenerative disc disease basically isolated to C5-6 and C6-7 with some loss of disc height and associated marginal spurs. 2. Otherwise negative. No acute fracture or listhesis. Spinal canal and neural foramina appear to be adequate throughout. Shoulder X-Ray 11/02/17 02:06 CONCLUSION: No fracture or significant degenerative changes. 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 Hypokalemia, potassium 2.8, likely due to poor nutrition from multiple allergies -supplementation ordered, bmp Mg pending, replace as needed Multiple falls, likely secondary to Klonopin use Head CT reviewed and is negative -PT eval and treat, fall precautions -Resume Klonopin QID as needed. Does not want to decrease Klonopin dose states she has been on it for 15 years . Pt extensively counselled re SE from benzo including impairment and addiction. -Wrist x ray and shoulder x ray. Right distal radius fx. Pain mgt patient refusing narcotics wants to use her own Tylenol. Ortho consulted, recommends nonsurgical management. Continue elevation and immobilization/cast. DVT prophylaxis: SCDs Discharge Planning: Discharge patient to home Condition on discharge: Improved Regular Diet as tolerated Ad Margarita activity no driving. Nonweightbearing right upper extremity Rx written: None Follow-up with primary care physician and orthopedic surgery (1) Radial fracture Qualifiers: Radius location: distal
--- NOTE | 2017-11-03 09:02 | MB ---
cc: Rashad Askew PA/Principal Biostatistician DATE: 11/03/2017 CHIEF COMPLAINT: Right wrist pain, status post fall. HISTORY OF PRESENT ILLNESS: The patient is a 67-year-old white female who presents to the emergency department 2 days ago after suffering a fall. She states that she has multiple falls quite frequently. She states that she has long-term use of Klonopin and thinks that is why she fell. She reports that she was guarding when she did fall. She states that she has multiple medical issues and a lengthy history. She reports that she has a liver pathway issue as well as a "neuro transmitter issue." She reports that "the neuro transmitters in her head stopped working and that she could at any time." She states that the right wrist is not bothering her. She states that, while she did fall and it did hurt, it is comfortable at the moment. She is using it to write notes on a piece of paper. She is very agitated and states that she needs to go home. She denies pain anywhere else. SHE STATES SHE ALSO HAS MULTIPLE ALLERGIES, and can only take certain medications. REVIEW OF SYSTEMS: Negative for fevers, weight loss, headache, visual changes, hearing loss, chest pain, palpitations, shortness of breath, nausea or vomiting, urinary changes, neck or back pain, skin rashes, weakness or numbness of extremities or depression. PAST FAMILY AND SOCIAL HISTORY: Noncontributory. PAST MEDICAL HISTORY: Positive for diabetes, anxiety, migraine, peptic ulcer disease, liver pathway disease and na euro transmitter issue. PAST SURGICAL HISTORY: She states she is positive for a thyroid surgery and a tonsillectomy. TOBACCO HISTORY: Never smoked. ALCOHOL HISTORY: Never drank. SUBSTANCE ABUSE: Denies any illicit drug use. ALLERGIES AND MEDICATIONS: For complete list of the patient's medications and a lengthy allergy list, please see the patient's MAR. PHYSICAL EXAMINATION: VITAL SIGNS: Temperature 98.1, pulse 93, respiratory rate 18, blood pressure 145/63, O2 saturation 100% on room air. GENERAL: Well-developed, well-nourished 67-year-old, white female resting comfortably. She does appear slightly agitated with potential underlying psych issues. She is somewhat histrionic and goes on multiple flight of ideas. HEAD: She has a bandage wrapped around her forehead. Otherwise, she is normocephalic and atraumatic. EARS: Hearing intact bilaterally. EYES: Extraocular motions intact. Pupils are equal, round and reactive to light. NEUROLOGIC: Cranial nerves 2-12 grossly intact. NECK: Supple. No evidence of lymphadenopathy. ABDOMEN: Soft and nontender. LUNGS: No use of accessory muscles while breathing and no audible wheezes at bedside. HEART: No grade IV murmur present at bedside. MUSCULOSKELETAL: Right arm: There is a sugar-tong splint present and in good repair. She has good motion of the shoulder. She has full motion of her fingers and is using them to write with a pen with no pain. She has full sensation to the median and ulnar nerve distribution. Left arm: Full motion of the shoulder, elbow, wrist, and fingers and no pain with full sensation distally. LABORATORY DATA: White blood cell count 11.7, red blood cell count 3.91, hemoglobin 11.2, hematocrit 34.4, platelets 352. INR 1.0. Sodium 140, potassium is low at 3.2, glucose 130. IMAGING STUDIES: A 2-view x-ray of the right wrist was reviewed from [facility], which shows an impacted minimally displaced right distal radius fracture. ASSESSMENT: Right distal radius fracture. PLAN: Treatment options were discussed with the patient. Overall, the fracture of her right distal radius is well aligned and should not require surgical intervention. I advised her to remain strictly nonweightbearing on the right wrist and maintain her splint at all times. The patient is very agitated and states that this "will not work for her." She has no desire to remain in the splint. I again reiterated the importance of remaining in the splint. I informed her that if she comes out of the splint, her fracture could shift and if that happens, that could necessitate surgical intervention. This patient is adamant that she does not want to have any type of surgery as she does not tolerate anesthesia medications. I advised her that as long as she is compliant with our wishes and our advice, that she should be able to avoid surgery. I advised her again to remain nonweightbearing and maintain the splint. She will followup in 1 week in the office for x-rays, at which point we will progress her to a short-arm cast. The patient seems to be in agreement with this plan. From an orthopedic standpoint, she is cleared for discharge. She may resume her diet. She is a nonsurgical candidate at this time. She can be discharged home with followup in [address] Soriano in the office. The patient agrees and understood. The above patient was reviewed and discussed with Dr. Soriano and he agrees. Thank you for the consultation. LUCHO Hancock, PA/Principal Biostatistician ИВАН/ANDRES , 08:35 AM , 08:46 AM
[2017-11-03 09:46] VITALS: BP 141/70; PULSE 91; RESP 16
== END 2017-11-03 12:08 | disposition home health service (06) ==
LOC: NEPHCDU 22:17 → NEPE 22:17 → NEDA 22:17 → NEPHCDU 11-02 10:32
PROVIDERS: ADMIT Internal Medicine; ATTEND Internal Medicine